=== PATIENT | male | born 1985 | race Caucasian/White ===

== ENCOUNTER 2017-03-21 21:07 | Emergency (ER) | payer OTHER ==
--- NOTE | 2017-03-21 22:38 | DIAGNOSTIC IMAGING REPORT ---
PROCEDURE: XR CHEST 2 VIEW INDICATION: CHEST PAIN TECHNIQUE: PA and lateral view. COMPARISON: None. FINDINGS: Lungs are clear. Cardiovascular structures are normal. Bony thorax is unremarkable. IMPRESSION: 1. Negative chest.
--- NOTE | 2017-03-22 00:48 | ED ORDER SUMMARY ---
..... Patient: YELENA MOTT OrderSheet [facility] VisitID: [id number] [place] [address] 31y, M Registration Date/Time: 03/21/2017 ORDER SHEET Weight: 81.6 kg (stated) Allergies: No Known Drug Allergy GENERAL ORDERS: Blood Culture (No) (N/A) Urgent (21:34 03/21/2017 Jeannette R.N. verbal order read back to Obdulia OCHOA) (Ack 21:52 CHagerty ER Utilization Management Manager) (23:54 CHagerty ER Utilization Management Manager) CBC w Diff Urgent (:34 03/21/2017 Jeannette R.N. verbal order read back to Obdulia OCHOA) (Ack 21:52 CHagerty ER Utilization Management Manager) (23:54 CHagerty ER Utilization Management Manager) CMP Urgent (21:34 03/21/2017 Jeannette R.N. verbal order read back to Obdulia OCHOA) (Ack 21:52 CHagerty ER Utilization Management Manager) (23:54 CHagerty ER Utilization Management Manager) Pulse oximeter (21:34 03/21/2017 Jeannette R.N. verbal order read back to Obdulia OCHOA) (Ack 22:16 Candelaria R.N.) (22:26 Mandienandez R.N.) Chest 2V Urgent (21:34 03/21/2017 Jeannette R.N. verbal order read back to Obdulia OCHOA) (Ack 21:52 CHagerty ER Utilization Management Manager) (22:02 MCampbell) Lipase Urgent (22:42 03/21/2017 Obdulia OCHOA) (Ack 22:45 CHagerty ER Utilization Management Manager) (23:54 CHagerty ER Utilization Management Manager) UA-Culture if indicated Urgent (00:05 03/22/2017 Obdulia OCHOA) (Ack 0:18 CHagerty ER Utilization Management Manager) (0:30 Mandienandez R.N.) MEDICATION ORDERS: IV FLUIDS: IV Saline Lock (21:34 03/21/2017 Jeannette R.N. verbal order read back to Obdulia OCHOA) (Ack 22:15 Candelaria R.N.) (22:29 Jeannette R.N.) IV NS : initial bolus none -, then 1000 mL/hr (NOW) (22:32 03/21/2017 Jeannette Davison verbal order read back to Obdulia OCHOA) (22:34 Jeannette Willams.N.) Toradol IV 30 mg (NOW) (22:42 03/21/2017 Obdulia OCHOA) (Ack 22:42 Candelaria R.N.) (22:48 Candelaria R.N.) Dilaudid IV 1 mg (HIGH ALERT MEDICATION, NOW) (22:42 03/21/2017 Obdulia OCHOA) (Ack 22:42 Candelaria R.N.) (22:49 Candelaria R.N.) ORDER SHEET NOTES: [Electronically signed by Yasemin Kay MD (01:03/22/2017)] [Electronically signed by Rui De La Garza R.N. (:03/22/2017)] [Electronically locked/signed by Rui De La Garza R.N. (:03/22/2017)]
--- NOTE | 2017-03-22 00:48 | ED NURSING NOTES ---
Clinical Report - Nurses [facility] [address] [place] [address] 03/21/2017 21:08 Patient: YELENA MOTT TRIAGE Triage time 21:Mar 21 2017. Acuity: LEVEL 3. Chief Complaint: CHEST PAIN and DISCOMFORT. Alert. LUIS MIGUEL COMA SCORE: Clarence Coma Scale: 15- eyes open spontaneously (4); best verbal response- oriented x 4 (5); best motor response- obeys commands (6). --21:33 David Slade R.N. 21:19 03/21/17. BP: 110/57. HR: 81. RR: 20. O2 saturation: 100% on room air. Temp: 101.3 F. Pain level now: 07/03. Additional comments: L-sided chest pain. --21:33 David Slade R.N. Weight: 81.6 kg stated. Height/Length: 73 inches Per Patient. BMI: 23.7. --21:26 David Slade R.N. Medications None. --21:29 David Slade R.N. Allergies No Known Drug Allergy. --21:29 David Slade R.N. Medication/allergy information source: the patient. --21:33 David Slade R.N. History Arrived by private vehicle. Historian: patient. Accompanied by mother. Primary physician (Cristian Greenberg Jenny, [place] [facility]). ( (L)-Sided Chest Pain associated with dyspnea. Started 3 days ago. Pt states that he was swimming in the river 3 days ago and got a big hug from a friend and pain started that night. Pt states that he hurts from the neck down to the flank and when he takes a deep breath, it hurts in the anterior (L).). Onset. (about 3 days ago). He has had fever, difficulty breathing and a nonproductive cough. Treatment CUFF FOLDER: None. PAST MEDICAL HX: Immunizations: status is unknown. SOCIAL HX: Heavy tobacco smoker- less than 1 pack per day. Alcohol use; consumes beer occasionally. History of occasional drug use: marijuana. (Heroin in the past). No infectious disease exposure. ABUSE ASSESSMENT: No report of abuse. FALL RISK ASSESSMENT: Fall risk assessment completed. No fall risk identified. NUTRITIONAL RISK ASSESSMENT: The nutritional risk assessment revealed no deficiencies. FUNCTIONAL ASSESSMENT: Functional assessment: no impairments noted. LEARNING NEEDS ASSESSMENT: The learning needs assessment revealed no barriers. SKIN INTEGRITY ASSESSMENT: Skin integrity risk assessment completed. No skin integrity risk identified. --21:33 David Slade R.N. PROBLEMS: Depression. Fibula Fracture. Sprain. --21:30 David Slade R.N. Substance Abuse. --21:31 David Slade R.N. ADDITIONAL SURGERIES: Appendectomy. Back Surgery. --21:31 David Slade R.N. Interventions ID band on patient. To treatment room. --21:33 David Slade R.N. PHYSICAL ASSESSMENT Ambulatory to room. GENERAL / NEURO / PSYCH: Alert. Oriented X 4. HEENT: Mucous membranes are pink. RESPIRATORY: Respirations not labored. Chest nontender. Breath sounds within normal limits. CVS: Cardiac rhythm: (RRR). Pulses within normal limits. Capillary refill less than 2 seconds. GI / : Abdomen soft. EXTREMITIES: No lower extremity edema. SKIN: Skin is warm and dry. Normal skin turgor. Skin is non-tender. --21:36 David Slade R.N. NURSING PROGRESS NOTES Patient gowned. Reassurance given. Patient identifiers checked. Call light placed in reach. Side rails up x 1. Bed placed in lowest position. Brakes of bed on. Patient ready for evaluation- chart flagged. --21:36 David Slade R.N. 22:26 03/21/17. BP: 128/61. HR: 77. RR: 18. O2 saturation: 100% on room air. --22:28 Rui De La Garza R.N. Reassessment after fluids administered. He is calm. Overall patient status is the same- he states feels the same. RESPIRATORY: No respiratory distress. Breath sounds normal. SKIN: Skin color within normal limits. --22:28 Rui De La Garza R.N. 22:00 03/21/2017 Site #1 started via IV in the left with an 22g angiocath, with aseptic technique and good blood return; one attempt. Blood drawn: rainbow set. Labeled in the presence of the patient and sent to the lab. Saline lock flushed with 10 mL saline. --22:29 David Slade R.N. 22:10 03/21/2017 Started bag #1 1000 mL IV Fluids IV NS (Saline); at 1000 mL/hr over 60 minute(s) via site #1 --22:34 David Slade R.N. 22:17 03/21/2017 Site #2 started via IV in the right leg with an 20g angiocath, with aseptic technique and good blood return; two attempts. Saline lock flushed with 10 mL saline (Unable to draw a blood specimen from this site). --22:32 David Slade R.N. 22:43 03/21/2017 Toradol IVP 30 mg given over 2 minute(s) via site #1. Allergies verified and confirmed 5 rights. IV patency established. IV site checked: no pain, redness, or swelling. IV flushed thoroughly pre- and post-medication administration. IVP given by RN. --22:48 Rui De La Garza R.N. 22:49 03/21/2017 Dilaudid (HYDROmorphone HCl PF) IVP 1 mg given over 2 minute(s) via site #1. Allergies verified, confirmed 5 rights and sedative warning given to the patient and patient's associate professor of automation. IV patency established. IV site checked: no pain, redness, or swelling. IV flushed thoroughly pre- and post-medication administration. IVP given by RN. --22:49 Rui De La Garza R.N. 22:49 03/21/17. BP: 129/95. HR: 80. RR: 18. O2 saturation: 95%. --22:50 Rui De La Garza R.N. Overall patient status is the same- he states feels the same. RESPIRATORY: No respiratory distress. Breath sounds normal. SKIN: Skin is warm and dry. Skin color within normal limits. --22:50 Rui De La Garza R.N. 23:00 03/21/17. Patient ID band checked. Blood samples drawn with 23g butterfly by lab: rainbow set: blood culture (1st set). (drawn from R leg). --23:14 David Slade R.N. 23:15 03/21/17. BP: 112/57. HR: 78. RR: 16. O2 saturation: 97%. Pain level now: 03/03. --23:16 David Slade R.N. 23:45 03/21/17. BP: 114/54. HR: 69. RR: 14. O2 saturation: 100%. Temp: 98.6 F (oral). --23:47 Rui De La Garza R.N. Reassessment after fluids administered and medication administered. He is calm and resting quietly. Overall patient status is improved- he states feels better. RESPIRATORY: No respiratory distress. Breath sounds normal. SKIN: Skin is warm and dry. Skin color within normal limits. --23:47 Rui De La Garza R.N. 00:29 03/22/17. BP: 111/51. HR: 74. RR: 16. O2 saturation: 100%. --00:31 Rui De La Garza R.N. Patient ID band checked for patient name and birthdate: patient confirmed. Instructions provided to collect clean catch urine and patient verbalized understanding. Clean catch urine collected with return of yellow-colored urine; sample sent to lab for urinalysis and culture. Specimen labeled in the presence of the patient. Reassessment after fluids administered. He is calm and resting quietly. Overall patient status is improved- he states feels better. RESPIRATORY: No respiratory distress. SKIN: Skin is warm and dry. Skin color within normal limits. --00:31 Rui De La Garza R.N. 00:45 03/22/2017 IV Fluids IV NS Discontinued: bag #1 infused upon discharge. Total amount infused: 1000 mL. IV patency established. IV site checked: no pain, redness, or swelling. IV flushed thoroughly. --01:10 Rui De La Garza R.N. 01:05 03/22/2017 IV Saline Lock Drip IV Discontinued. Total amount infused: 10 mL. IV patency established. IV site checked: no pain, redness, or swelling. IV flushed thoroughly. --01:11 Rui De La Garza R.N. 01:03/22/2017 Site #1 removed upon discharge. Pressure dressing applied. --01:11 Rui De La Garza R.N. 01:03/22/2017 Site #2 removed upon discharge. Pressure dressing applied. --01:12 Rui De La Garza R.N. 01:03/22/2017 IV Saline Lock Drip IV Discontinued: upon discharge. Total amount infused: 10 mL. IV patency established. IV site checked: no pain, redness, or swelling. IV flushed thoroughly. --01:11 Rui De La Garza R.N. DISPOSITION / DISCHARGE Condition at departure: improved. No learning barriers present. Discharge instructions provided and reviewed with the patient. Reviewed medication(s) side effects, precautions, dosing and course information. Prescription(s) given to the patient. Reviewed referral to a primary care physician for followup. Patient verbalized understanding. Written instructions provided in Bahamian. The patient was discharged home and accompanied by spouse. He left the Emergency Department ambulatory and via private vehicle. Spouse driving. --01:13 Rui De La Garza R.N. 01:12 03/22/17. BP: 115/56. HR: 65. RR: 16. O2 saturation: 100%. Temp: 98.1 F (oral). Pain level now: 10/03. --01:13 Rui De La Garza R.N. Departure time: 01:13. --01:13 Rui De La Garza R.N. Locked/Released at 03/22/2017 1:13 by Rui De La Garza R.N.
--- NOTE | 2017-03-22 00:48 | ED ORDER SUMMARY ---
..... Patient: YELENA MOTT OrderSheet [facility] VisitID: [id number] [place] [address] 31y, M Registration Date/Time: 03/21/2017 ORDER SHEET Weight: 81.6 kg (stated) Allergies: No Known Drug Allergy GENERAL ORDERS: Blood Culture (No) (N/A) Urgent (21:34 03/21/2017 Jeannette R.N. verbal order read back to Obdulia OCHOA) (Ack 21:52 CHagerty ER Director Process Improvement) (23:54 CHagerty ER Director Process Improvement) CBC w Diff Urgent (:34 03/21/2017 Jeannette R.N. verbal order read back to Obdulia OCHOA) (Ack 21:52 CHagerty ER Director Process Improvement) (23:54 CHagerty ER Director Process Improvement) CMP Urgent (21:34 03/21/2017 Jeannette R.N. verbal order read back to Obdulia OCHOA) (Ack 21:52 CHagerty ER Director Process Improvement) (23:54 CHagerty ER Director Process Improvement) Pulse oximeter (21:34 03/21/2017 Jeannette R.N. verbal order read back to Obdulia OCHOA) (Ack 22:16 Candelaria R.N.) (22:26 Mandienandez R.N.) Chest 2V Urgent (21:34 03/21/2017 Jeannette R.N. verbal order read back to Obdulia OCHOA) (Ack 21:52 CHagerty ER Director Process Improvement) (22:02 MCampbell) Lipase Urgent (22:42 03/21/2017 Obdulia OCHOA) (Ack 22:45 CHagerty ER Director Process Improvement) (23:54 CHagerty ER Director Process Improvement) UA-Culture if indicated Urgent (00:05 03/22/2017 Obdulia OCHOA) (Ack 0:18 CHagerty ER Director Process Improvement) (0:30 Mandienandez R.N.) MEDICATION ORDERS: IV FLUIDS: IV Saline Lock (21:34 03/21/2017 Jeannette R.N. verbal order read back to Obdulia OCHOA) (Ack 22:15 Candelaria R.N.) (22:29 Jeannette R.N.) IV NS : initial bolus none -, then 1000 mL/hr (NOW) (22:32 03/21/2017 Jeannette Davison verbal order read back to Obdulia OCHOA) (22:34 Jeannette Willams.N.) Toradol IV 30 mg (NOW) (22:42 03/21/2017 Obdulia OCHOA) (Ack 22:42 Candelaria R.N.) (22:48 Candelaria R.N.) Dilaudid IV 1 mg (HIGH ALERT MEDICATION, NOW) (22:42 03/21/2017 Obdulia OCHOA) (Ack 22:42 Candelaria R.N.) (22:49 Candelaria R.N.) ORDER SHEET NOTES: [Electronically signed by Yasemin Kay MD (01:03/22/2017)] [Electronically signed by Rui De La Garza R.N. (:03/22/2017)] [Electronically locked/signed by Rui De La Garza R.N. (:03/22/2017)]
--- NOTE | 2017-03-22 00:48 | ED NURSING NOTES ---
Clinical Report - Nurses [facility] [address] [place] [address] 03/21/2017 21:08 Patient: YELENA MOTT TRIAGE Triage time 21:Mar 21 2017. Acuity: LEVEL 3. Chief Complaint: CHEST PAIN and DISCOMFORT. Alert. LUIS MIGUEL COMA SCORE: Trumann Coma Scale: 15- eyes open spontaneously (4); best verbal response- oriented x 4 (5); best motor response- obeys commands (6). --21:33 David Slade R.N. 21:19 03/21/17. BP: 110/57. HR: 81. RR: 20. O2 saturation: 100% on room air. Temp: 101.3 F. Pain level now: 07/03. Additional comments: L-sided chest pain. --21:33 David Slade R.N. Weight: 81.6 kg stated. Height/Length: 73 inches Per Patient. BMI: 23.7. --21:26 David Slade R.N. Medications None. --21:29 David Slade R.N. Allergies No Known Drug Allergy. --21:29 David Slade R.N. Medication/allergy information source: the patient. --21:33 David Slade R.N. History Arrived by private vehicle. Historian: patient. Accompanied by mother. Primary physician (Cristian Greenberg Jenny, [place] [facility]). ( (L)-Sided Chest Pain associated with dyspnea. Started 3 days ago. Pt states that [place] was [place] the [place] 3 [place] ago and got a big hug from a friend and pain started that night. Pt states that he hurts from the neck down to the flank and when he takes a deep breath, it hurts in the anterior (L).). Onset. (about 3 days ago). He has had fever, difficulty breathing and a nonproductive cough. Treatment DITCH CLEANER: None. PAST MEDICAL HX: Immunizations: status is unknown. SOCIAL HX: Heavy tobacco smoker- less than 1 pack per day. Alcohol use; consumes beer occasionally. History of occasional drug use: marijuana. (Heroin in the past). No infectious disease exposure. ABUSE ASSESSMENT: No report of abuse. FALL RISK ASSESSMENT: Fall risk assessment completed. No fall risk identified. NUTRITIONAL RISK ASSESSMENT: The nutritional risk assessment revealed no deficiencies. FUNCTIONAL ASSESSMENT: Functional assessment: no impairments noted. LEARNING NEEDS ASSESSMENT: The learning needs assessment revealed no barriers. SKIN INTEGRITY ASSESSMENT: Skin integrity risk assessment completed. No skin integrity risk identified. --21:33 David Slade R.N. PROBLEMS: Depression. Fibula Fracture. Sprain. --21:30 David Slade R.N. Substance Abuse. --21:31 David Slade R.N. ADDITIONAL SURGERIES: Appendectomy. Back Surgery. --21:31 David Slade R.N. Interventions ID band on patient. To treatment room. --21:33 David Slade R.N. PHYSICAL ASSESSMENT Ambulatory to room. GENERAL / NEURO / PSYCH: Alert. Oriented X 4. HEENT: Mucous membranes are pink. RESPIRATORY: Respirations not labored. Chest nontender. Breath sounds within normal limits. CVS: Cardiac rhythm: (RRR). Pulses within normal limits. Capillary refill less than 2 seconds. GI / : Abdomen soft. EXTREMITIES: No lower extremity edema. SKIN: Skin is warm and dry. Normal skin turgor. Skin is non-tender. --21:36 David Slade R.N. NURSING PROGRESS NOTES Patient gowned. Reassurance given. Patient identifiers checked. Call light placed in reach. Side rails up x 1. Bed placed in lowest position. Brakes of bed on. Patient ready for evaluation- chart flagged. --21:36 David Slade R.N. 22:26 03/21/17. BP: 128/61. HR: 77. RR: 18. O2 saturation: 100% on room air. --22:28 Rui De La Garza R.N. Reassessment after fluids administered. He is calm. Overall patient status is the same- he states feels the same. RESPIRATORY: No respiratory distress. Breath sounds normal. SKIN: Skin color within normal limits. --22:28 Rui De La Garza R.N. 22:00 03/21/2017 Site #1 started via IV in the left with an 22g angiocath, with aseptic technique and good blood return; one attempt. Blood drawn: rainbow set. Labeled in the presence of the patient and sent to the lab. Saline lock flushed with 10 mL saline. --22:29 David Slade R.N. 22:10 03/21/2017 Started bag #1 1000 mL IV Fluids IV NS (Saline); at 1000 mL/hr over 60 minute(s) via site #1 --22:34 David Slade R.N. 22:17 03/21/2017 Site #2 started via IV in the right leg with an 20g angiocath, with aseptic technique and good blood return; two attempts. Saline lock flushed with 10 mL saline (Unable to draw a blood specimen from this site). --22:32 David Slade R.N. 22:43 03/21/2017 Toradol IVP 30 mg given over 2 minute(s) via site #1. Allergies verified and confirmed 5 rights. IV patency established. IV site checked: no pain, redness, or swelling. IV flushed thoroughly pre- and post-medication administration. IVP given by RN. --22:48 Rui De La Garza R.N. 22:49 03/21/2017 Dilaudid (HYDROmorphone HCl PF) IVP 1 mg given over 2 minute(s) via site #1. Allergies verified, confirmed 5 rights and sedative warning given to the patient and patient's brand marketing coordinator. IV patency established. IV site checked: no pain, redness, or swelling. IV flushed thoroughly pre- and post-medication administration. IVP given by RN. --22:49 Rui De La Garza R.N. 22:49 03/21/17. BP: 129/95. HR: 80. RR: 18. O2 saturation: 95%. --22:50 Rui De La Garza R.N. Overall patient status is the same- he states feels the same. RESPIRATORY: No respiratory distress. Breath sounds normal. SKIN: Skin is warm and dry. Skin color within normal limits. --22:50 Riu De La Garza R.N. 23:00 03/21/17. Patient ID band checked. Blood samples drawn with 23g butterfly by lab: rainbow set: blood culture (1st set). (drawn from R leg). --23:14 David Slade R.N. 23:15 03/21/17. BP: 112/57. HR: 78. RR: 16. O2 saturation: 97%. Pain level now: 03/03. --23:16 David Slade R.N. 23:45 03/21/17. BP: 114/54. HR: 69. RR: 14. O2 saturation: 100%. Temp: 98.6 F (oral). --23:47 Rui De La Garza R.N. Reassessment after fluids administered and medication administered. He is calm and resting quietly. Overall patient status is improved- he states feels better. RESPIRATORY: No respiratory distress. Breath sounds normal. SKIN: Skin is warm and dry. Skin color within normal limits. --23:47 Rui De La Garza R.N. 00:29 03/22/17. BP: 111/51. HR: 74. RR: 16. O2 saturation: 100%. --00:31 Rui De La Garza R.N. Patient ID band checked for patient name and birthdate: patient confirmed. Instructions provided to collect clean catch urine and patient verbalized understanding. Clean catch urine collected with return of yellow-colored urine; sample sent to lab for urinalysis and culture. Specimen labeled in the presence of the patient. Reassessment after fluids administered. He is calm and resting quietly. Overall patient status is improved- he states feels better. RESPIRATORY: No respiratory distress. SKIN: Skin is warm and dry. Skin color within normal limits. --00:31 Rui De La Garza R.N. 00:45 03/22/2017 IV Fluids IV NS Discontinued: bag #1 infused upon discharge. Total amount infused: 1000 mL. IV patency established. IV site checked: no pain, redness, or swelling. IV flushed thoroughly. --01:10 uRi De La Garza R.N. 01:05 03/22/2017 IV Saline Lock Drip IV Discontinued. Total amount infused: 10 mL. IV patency established. IV site checked: no pain, redness, or swelling. IV flushed thoroughly. --01:11 Rui De La Garza R.N. 01:03/22/2017 Site #1 removed upon discharge. Pressure dressing applied. --01:11 Rui De La Garza R.N. 01:03/22/2017 Site #2 removed upon discharge. Pressure dressing applied. --01:12 Rui De La Garza R.N. 01:03/22/2017 IV Saline Lock Drip IV Discontinued: upon discharge. Total amount infused: 10 mL. IV patency established. IV site checked: no pain, redness, or swelling. IV flushed thoroughly. --01:11 Rui De La Garza R.N. DISPOSITION / DISCHARGE Condition at departure: improved. No learning barriers present. Discharge instructions provided and reviewed with the patient. Reviewed medication(s) side effects, precautions, dosing and course information. Prescription(s) given to the patient. Reviewed referral to a primary care physician for followup. Patient verbalized understanding. Written instructions provided in Mozambican. The patient was discharged home and accompanied by spouse. He left the Emergency Department ambulatory and via private vehicle. Spouse driving. --01:13 Rui De La Garza R.N. 01:12 03/22/17. BP: 115/56. HR: 65. RR: 16. O2 saturation: 100%. Temp: 98.1 F (oral). Pain level now: 10/03. --01:13 Rui De La Garza R.N. Departure time: 01:13. --01:13 Rui De La Garza R.N. Locked/Released at 03/22/2017 1:13 by Rui De La Garza R.N.
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
--- NOTE | 2017-03-22 01:14 | ED MAR SUMMARY ---
..... Medication Administration Record [facility] [address] [place] [address] Patient: YELENA MOTT Visit ID: [id number] 31y, M Weight: 81.6 kg Height/Length: 73 in BMI: 23.7 ALLERGIES: No Known Drug Allergy Start 22:10 03/21/2017 David Slade R.N., Stop 00:45 03/22/2017 Rui De La Garza R.N. Medication Administered: IV NS (SALINE), Dose: IV Fluids over 60 minute(s), Rate: 1000 mL/hr, Dispensed: 1000 mL bag, Site: #1 left. Medication Ordered: IV NS : initial bolus none -, then 1000 mL/hr (NOW). Given 22:43 03/21/2017 Rui De La Garza R.N. Medication Administered: TORADOL [IVP], Dose: 30 mg IVP over 2 minute(s), Site: #1 left. Medication Ordered: Toradol IV 30 mg (NOW). Given 22:49 03/21/2017 Rui De La Garza R.N. Medication Administered: DILAUDID [IVP] (HYDROMORPHONE HCL PF), Dose: 1 mg IVP over 2 minute(s), Site: #1 left. Medication Ordered: Dilaudid IV 1 mg (HIGH ALERT MEDICATION, NOW).
--- NOTE | 2017-03-22 01:14 | ED MAR SUMMARY ---
..... Medication Administration Record [facility] [address] [place] [address] Patient: YELENA MOTT Visit ID: [id number] 31y, M Weight: 81.6 kg Height/Length: 73 in BMI: 23.7 ALLERGIES: No Known Drug Allergy Start 22:10 03/21/2017 David Slade R.N., Stop 00:45 03/22/2017 Rui De La Garza R.N. Medication Administered: IV NS (SALINE), Dose: IV Fluids over 60 minute(s), Rate: 1000 mL/hr, Dispensed: 1000 mL bag, Site: #1 left. Medication Ordered: IV NS : initial bolus none -, then 1000 mL/hr (NOW). Given 22:43 03/21/2017 Rui De La Garza R.N. Medication Administered: TORADOL [IVP], Dose: 30 mg IVP over 2 minute(s), Site: #1 left. Medication Ordered: Toradol IV 30 mg (NOW). Given 22:49 03/21/2017 Rui De La Garza R.N. Medication Administered: DILAUDID [IVP] (HYDROMORPHONE HCL PF), Dose: 1 mg IVP over 2 minute(s), Site: #1 left. Medication Ordered: Dilaudid IV 1 mg (HIGH ALERT MEDICATION, NOW).
--- NOTE | 2017-03-22 01:14 | ED MED RECONCILIATION SUMMARY ---
Patient: YELENA MOTT Medication Reconciliation Report [facility] VisitID: [id number] [address] [place] [address] 31y, M Registration Date/Time: 03/21/2017 Weight: 81.6 kg Height/Length: 73 in. BMI: 23.7 ALLERGIES: No Known Drug Allergy The patient's Home Medications are listed below: NONE. The source(s) of the original Home Medication information: patient The following Medications were given to the patient in the Emergency Department: IV NS IV Fluids bolus 0, then 1000 mL/hr, administered: 03/21/2017 10:10:00 PM Toradol [IVP] IVP 30 mg, administered: 03/21/2017 10:43:00 PM Dilaudid [IVP] IVP 1 mg, administered: 03/21/2017 10:49:00 PM The following Medications were prescribed to the patient: Hydrocodone/APAP 5mg / 325mg: take 1 orally every 6 hours as needed for pain. Dispense five (5). No refill. -- Yasemin Kay MD Ibuprofen 800 mg tablets: take 1 tablet orally every 8 hours as needed for pain. Dispense twenty (20). No refill. -- Yasemin Kay MD
--- NOTE | 2017-03-22 01:14 | ED MED RECONCILIATION SUMMARY ---
Patient: YELENA MOTT Medication Reconciliation Report [facility] VisitID: [id number] [address] [place] [address] 31y, M Registration Date/Time: 03/21/2017 Weight: 81.6 kg Height/Length: 73 in. BMI: 23.7 ALLERGIES: No Known Drug Allergy The patient's Home Medications are listed below: NONE. The source(s) of the original Home Medication information: patient The following Medications were given to the patient in the Emergency Department: IV NS IV Fluids bolus 0, then 1000 mL/hr, administered: 03/21/2017 10:10:00 PM Toradol [IVP] IVP 30 mg, administered: 03/21/2017 10:43:00 PM Dilaudid [IVP] IVP 1 mg, administered: 03/21/2017 10:49:00 PM The following Medications were prescribed to the patient: Hydrocodone/APAP 5mg / 325mg: take 1 orally every 6 hours as needed for pain. Dispense five (5). No refill. -- Yasemin Kay MD Ibuprofen 800 mg tablets: take 1 tablet orally every 8 hours as needed for pain. Dispense twenty (20). No refill. -- Yasemin Kay MD
--- NOTE | 2017-03-22 01:14 | ED DISCHARGE INSTRUCTIONS ---
Patient: YELENA MOTT General Instructions [facility] VisitID: [id number] [place] [address] 31y, M Registration Date/Time: 03/21/2017 Muscle strain of the anterior chest wall and low back. INSTRUCTIONS (Your labs and x-ray look good, as does your urinalysis. There is no sign of an infection or kidney stone causing your pain.). Warnings: SEDATIVE MEDICATION: You were given sedative medication during your visit. Do not drive or operate dangerous machinery for 6 hours. GENERAL WARNINGS: Return or contact your physician immediately if your condition worsens or changes unexpectedly, if not improving as expected, or if other problems arise. Prescription Medications: Hydrocodone/APAP 5mg / 325mg: take 1 orally every 6 hours as needed for pain. Dispense five (5). No refill. Ibuprofen 800 mg tablets: take 1 tablet orally every 8 hours as needed for pain. Dispense twenty (20). No refill. Follow-up: Follow up with your doctor in five days if not better. Understanding of the discharge instructions verbalized by patient and parent. ADDITIONAL INFORMATION Back Pain [Acute Or Chronic] Back pain is usually caused by an injury to the muscles or ligaments of the spine. Sometimes the disks that separate each bone in the spine may bulge and cause pain by pressing on a nearby nerve. Back pain may also appear after a sudden twisting/bending force (such as in a car accident), after a simple awkward movement, or lifting something heavy with poor body positioning. In either case, muscle spasm is often present and adds to the pain. Acute back pain usually gets better in one to two weeks. Back pain related to disk disease, arthritis in the spinal joints or spinal stenosis (narrowing of the spinal canal) can become chronic and last for months or years. Unless you had a physical injury (for example, a car accident or fall) X-rays are usually not ordered for the initial evaluation of back pain. If pain continues and does not respond to medical treatment, x-rays and other tests may be performed at a later time. Home Care: You may need to stay in bed the first few days. But, as soon as possible, begin sitting or walking to avoid problems with prolonged bed rest (muscle weakness, worsening back stiffness and pain, blood clots in the legs). When in bed, try to find a position of comfort. A firm mattress is best. Try lying flat on your back with pillows under your knees. You can also try lying on your side with your knees bent up towards your chest and a pillow between your knees. Avoid prolonged sitting. This puts more stress on the lower back than standing or walking. During the first two days after injury, apply an ICE PACK to the painful area for 20 minutes every 2-4 hours. This will reduce swelling and pain. HEAT (hot shower, hot bath or heating pad) works well for muscle spasm. You can start with ice, then switch to heat after two days. Some patients feel best alternating ice and heat treatments. Use the one method that feels the best to you. You may use acetaminophen (Tylenol) or ibuprofen (Motrin, Advil) to control pain, unless another pain medicine was prescribed. [NOTE: If you have chronic liver or kidney disease or ever had a stomach ulcer or GI bleeding, talk with your doctor before using these medicines.] Be aware of safe lifting methods and do not lift anything over 15 pounds until all the pain is gone. Follow Up with your doctor or this facility if your symptoms do not start to improve after one week. Physical therapy may be needed. [NOTE: If X-rays were taken, they will be reviewed by a radiologist. You will be notified of any new findings that may affect your care.] Get Prompt Medical Attention if any of the following occur: Pain becomes worse or spreads to your legs Weakness or numbness in one or both legs Loss of bowel or bladder control Numbness in the groin or genital area Chest Strain A strain of the chest is due to stretching and tearing of the muscle fibers between the ribs. This may occur as a result of severe coughing, strenuous lifting or twisting injuries of the upper back. This usually causes increased pain with movement or deep breathing. This may take a few days to a few weeks to heal. Home Care: Rest. Avoid heavy lifting or strenuous exertion. Avoid any activity that causes pain. If you have a severe cough, use a cough syrup such as Robitussin DM (containing dextromethorphan) unless another cough medicine was prescribed. You may use acetaminophen (Tylenol) or ibuprofen (Motrin, Advil) to control pain, unless another medicine was prescribed. [ NOTE: If you have chronic liver or kidney disease or ever had a stomach ulcer or GI bleeding, talk with your doctor before using these medicines.] Follow Up with your doctor as directed. Get Prompt Medical Attention if any of the following occur: A change in the type of pain: if it feels different, becomes more severe, lasts longer, or begins to spread into your shoulder, arm, neck, jaw or back Shortness of breath or increased pain with breathing Cough with dark colored sputum (phlegm) or blood Weakness, dizziness, or fainting Fever of 100.4F (38C) or higher, or as directed by your healthcare provider You have been given the following additional information: Back Pain (Acute Or Chronic) Chest Wall Strain (Electronically signed by Yasemin Kay MD 03/22/2017 1:13)
== END 2017-03-22 01:13 | disposition home or self-care (01) ==
LOC: ED SRH 21:07
DX: S39.012A Strain of muscle, fascia and tendon of lower back, initial encounter (principal); S29.011A Strain of muscle and tendon of front wall of thorax, initial encounter
CPT/HCPCS: 90004; 90065; 90074; 90100; 92235; 95059